=== PATIENT | male | born 1940 | race Caucasian/White ===

== ENCOUNTER 2017-08-02 21:24 | Observation (INO) | payer MEDICARE ==
[2017-08-03] MEDS ORDERED: PANTOPRAZOLE 40 MG/10 ML VIAL ONE (00:30)
[2017-08-03] MEDS ORDERED: SODIUM CHLORIDE 0.9% 1,000 ML BAG ONE (00:30)
[2017-08-03] MEDS ORDERED: ONDANSETRON 4 MG/2 ML VIAL IVP PRN (05:37)
[2017-08-03] MEDS ORDERED: ACETAMINOPHEN TAB 325 MG TAB PO PRN (05:37)
[2017-08-03] MEDS ORDERED: traMADol 50 MG TAB PO PRN (05:38)
[2017-08-03] MEDS: SODIUM CHLORIDE 0.9% 1,000 ML IV SCH (07:00)
[2017-08-03 07:16] LABS: Basophils % (A) 0 %; Eosinophils # (A) 0.2 k/uL (0-0.7); Eosinophils % (A) 2 %; HCT 39.7 % (39.0-53.0); HGB 12.5 gm/dL (13.0-17.5); Lymphocytes % (A) 24 %; MCHC 31.4 g/dL (31.0-37.0); MCV 79.6 fL (80.0-100.0); Mean Platelet Volume 9.4; Monocytes # (A) 0.6 k/uL (0-1.0); Monocytes % (A) 7 %; Neutrophils # (A) 5.6 k/uL (1.3-7.7); Neutrophils % (A) 66 %; Platelet Count 175 k/uL (150-450); RBC 4.99 m/uL (4.30-5.90); RDW 13.4 % (11.5-15.5); WBC 8.5 k/uL (3.8-10.6)
[2017-08-03 07:56] LABS: Calcium 9.1 mg/dL (8.4-10.2); Potassium 4.8 mmol/L (3.5-5.1)
--- NOTE | 2017-08-03 10:01 | P.CONS ---
History of Present Illness - Reason for Consult Consult date: 08/03/17 Dysphagia Requesting physician: Cheyenne Aguayo - History of Present Illness 77-year-old gentleman history of hiatal hernia transferred from [facility] with acute onset of dysphagia after eating spinach chicken and macaroni and cheese yesterday for dinner. Patient stated after several bites of his meal he developed increased dysphagia in the posterior throat region associated with some upper chest discomfort. No emesis. No fever or chills. Denies weight loss, hematemesis hematochezia melena. No history of this type of dysphagia. No history of esophageal stricture disease. In the interim he has been offered clear liquids and is swallowing without difficulty. Last EGD colonoscopy evaluation several years ago; hiatal hernia possible gastric polyp possible diverticulosis was mentioned. Additionally patient has been reporting some changes in bowel habits more constipation over the last few months as well as some lower abdominal discomfort. He spoke with his PCP about these symptoms with discussion of outpatient colonoscopy possible CT imaging. White count 8.5. Hemoglobin 12.5. MCV 79.6. BUN 24. Creatinine 1.5. Review of Systems Constitutional: Denies fever, chills, sweats, weight gain, or loss. HEENT: Negative for migraines, blurred vision or loss, earaches, drainage, tinnitus, oral mucosal lesions, dysphagia, or odynophagia. Cardiac: Negative for chest pain, arrhythmias, or palpitation. Respiratory: Negative for shortness of breath, hemoptysis, cough, or sputum production. Gastrointestinal: See HPI for pertinent findings. Genitourinary: Negative for hematuria, urgency, frequency, polyuria, dysuria, or penile discharge. Musculoskeletal: Negative for muscle aches, swelling, arthritis, and arthralgias. Neurologic: Negative for stroke or TIA. Endocrine: Negative for thyroid problems. Skin: Negative for rash or itching. Psychiatric: Negative history for depression and anxiety Medications and Allergies Allergies Allergy/AdvReac Type Severity Reaction Status Date / Time milk Allergy CONGESTION Verified 08/03/17 10:33 Physical Exam Vitals: Intake and Output 08/02/17 08/03/17 08/03/17 22:59 06:59 14:59 Other: Weight 83.007 kg General appearance: The patient is alert, oriented, in no acute distress. HET: Head is normocephalic and atraumatic. Pupils are equal and reactive. Oropharynx is clear without lesions. Neck: Supple without lymphadenopathy. Trachea midline. Heart: S1 S2. Regular rate and rhythm. Lungs: No crackles or wheezes are heard. Abdomen: Soft, nontender, nondistended with bowel sounds. No peritoneal signs. No palpable organomegaly or masses. Extremities: Normal skin color and turgor. No cyanosis, rash, ulceration, clubbing, or edema. Radial and pedal pulses are 2/4 bilaterally. Neurological: No focal deficits. Strength and sensation are grossly intact. Results CBC & Chem 7: 08/03/17 06:39 08/03/17 06:39 Labs: Abnormal Lab Results - Last 24 Hours (Table) 08/03/17 Range/Units 06:39 Hgb 12.5 L (13.0-17.5) gm/dL MCV 79.6 L (80.0-100.0) fL Assessment and Plan (1) Dysphagia Narrative/Plan: 77-year-old male presents with acute dysphagia as well as change in bowel habits with more constipation and lower abdominal discomfort over the last few months with evidence of microcytic anemia without overt GI bleeding. Possible food dysphagia possible Zenker's diverticulum possible stricture disease. Current Visit: Yes Status: Acute Code(s): R13.10 - DYSPHAGIA, UNSPECIFIED SNOMED Code(s): 25138462 (2) Change in bowel habits Current Visit: Yes Status: Acute Code(s): R19.4 - CHANGE IN BOWEL HABIT SNOMED Code(s): 495121716 (3) Microcytic anemia Current Visit: Yes Status: Acute Code(s): D50.9 - IRON DEFICIENCY ANEMIA, UNSPECIFIED SNOMED Code(s): 808433802 Plan: 1. EGD colonoscopy discussed and scheduled tomorrow for evaluation of microcytic anemia, change in bowel habits and dysphagia. 2. Clear liquid diet. Nothing by mouth after midnight. 3. Iron indices. The manager managing has discussed the risks, benefits and alternative therapies for the above-mentioned procedure and for both sedation/analgesia as well as necessary blood product administration, if indicated, as they pertain to this patient. The patient has indicated understanding and acceptance of the risks and procedures discussed. Thank you for this kind referral and the opportunity to participate in the care of your patient. This consultation was discussed with Dr. Juarez. The impression and plan of care have been directed as dictated.
[2017-08-03] MEDS ORDERED: PEG 3350-NA SULF,BICARB,CL/KCL 4,000 ML BOTTLE PO ONE (16:00)
[2017-08-03] MEDS ORDERED: BACLOFEN 10 MG TAB PO PRN (19:07)
[2017-08-03] MEDS ORDERED: LORATADINE-PSEUDOEPH 5-120 MG 1 EACH TAB.ER.12H PO PRN (19:07)
[2017-08-03] MEDS: SODIUM BICARBONATE TAB 650 MG TAB PO SCH (19:48)
[2017-08-03] MEDS ORDERED: CYANOCOBALAMIN 500 MCG TAB PO SCH (20:00)
--- NOTE | 2017-08-03 20:00 | HP ---
HISTORY AND PHYSICAL DATE OF SERVICE: 08/03/2017 CHIEF COMPLAINT: Dysphagia. HISTORY OF PRESENT ILLNESS: This 77-year-old gentleman with a past medical history of hypertension being followed by primary physician, Dr. Corona was apparently eating food yesterday. The patient had difficulty in swallowing and chest pain in the anterior part of the chest. Patient taken to [facility] and admitted for further evaluation and treatment. Patient had dysphagia previously. Patient also had EGD and colonoscopy previously and also had apparent polyps in the upper endoscopy. The results are pending at this time. Currently the patient is eating a combination of chicken, spinach and macaroni. Currently the patient is apparently able to swallow liquids according to him. Gastroenterology evaluated the patient and recommended possible upper and lower endoscopies. There is no history of fever, rigors. No history of headache, loss of consciousness, seizures. PAST MEDICAL HISTORY: Hypertension, history of previous dysphagia. MEDICATIONS: Reviewed and include: 1. Baclofen 10 mg p.o. t.i.d. p.r.n. 2. Vitamin B12 5000 mcg p.o. q 7 days. 3. Co-Enzyme-Q 100 mg p.o. daily. 4. Sodium bicarb 650 mg p.o. b.i.d. 5. Magonate mg 1000 mg p.o. daily. 6. Zestril 5 mg p.o. q.h.s. 7. Probiotic 2 capsules p.o. daily. 8. Fish oil 3 capsules p.o. daily. 9. Benita-D 24 1 p.o. daily p.r.n. 10.Tagamet 200 mg p.o. daily. 11.Vitamin D3 5000 daily. 12.Ecotrin 81 mg p.o. daily. ALLERGIES: MILK. FAMILY HISTORY: No history of heart disease or strokes in the family. SOCIAL HISTORY: No history of current smoking or alcohol intake. REVIEW OF SYSTEMS: ENT: No diminished vision. No diminished hearing. CARDIOVASCULAR: No angina or palpitations. Otherwise as mentioned earlier. Respirations: No cough or hemoptysis. GI: As mentioned earlier. : No dysuria or hematuria. Nervous system: No numbness, weakness. Allergy/Immunology: No asthma or hayfever. Musculoskeletal: As mentioned earlier. HEMATOLOGY/ONCOLOGY: No history of anemia. Endocrine: No history of diabetes or hypothyroidism. CONSTITUTIONAL: As mentioned earlier. Dermatology: Negative. Hematology: Negative. Psychiatric: As mentioned earlier. PHYSICAL EXAMINATION: The patient is alert, oriented times three. Pulse is 68. Blood pressure 126/83, respiration 18, temperature 97.4, pulse ox 99% on room air. HEENT: Conjunctivae normal. NECK: No jugular venous distention. Cardiovascular: S1, S2 muffled. Respiratory: Breath sounds diminished in the bases. No rhonchi. No crackles. Abdomen soft. Nontender. No mass palpable. Legs no edema, no swelling. NERVOUS SYSTEM: Higher functions as mentioned earlier, moves all 4 limbs, no focal motor deficits. Lymphatics: No lymph nodes palpable in the neck, axillae or groin. Skin no ulcer, rash or bleeding. LABS: WBC 8.2, hemoglobin 12.5, creatinine is 1.57. ASSESSMENT: 1. Dysphagia for evaluation. 2. Increased creatinine with chronic kidney disease stage 3. 3. History of hypertension. RECOMMENDATION AND DISCUSSION: Recommend to continue current medications, management and symptomatic treatment, otherwise EGD and colonoscopy by Gastroenterology tomorrow. Otherwise, resume the home medications. Guarded prognosis because of multiple complex medical issues. Further recommendations to follow. We will hold the aspirin for now. MMODL / IJN: [id number] /
[2017-08-03] MEDS ORDERED: LISINOPRIL 5 MG TAB PO SCH (21:00)
[2017-08-03] MEDS ORDERED: LACTATED RINGERS 1,000 ML IV SCH (22:45)
[2017-08-04 01:18] LABS: Iron Saturation 17.49 (15.00-50.00)
[2017-08-04] MEDS: SODIUM CHLORIDE 0.9% 1,000 ML IV SCH ×2 (07:07→10:50)
[2017-08-04 07:49] VITALS: RESP 16
[2017-08-04 08:56] LABS: Basophils % (A) 0 %; Eosinophils # (A) 0.3 k/uL (0-0.7); Eosinophils % (A) 4 %; HCT 41.4 % (39.0-53.0); HGB 13.2 gm/dL (13.0-17.5); Lymphocytes # (A) 1.6 k/uL (1.0-4.8); Lymphocytes % (A) 22 %; MCH 25.6 pg (25.0-35.0); Mean Platelet Volume 9.2; Monocytes # (A) 0.6 k/uL (0-1.0); Monocytes % (A) 8 %; Neutrophils # (A) 4.6 k/uL (1.3-7.7); Neutrophils % (A) 65 %; Platelet Count 172 k/uL (150-450); RBC 5.17 m/uL (4.30-5.90); RDW 13.5 % (11.5-15.5); WBC 7.1 k/uL (3.8-10.6)
[2017-08-04] MEDS: SODIUM BICARBONATE TAB 650 MG TAB PO SCH (08:57)
[2017-08-04] MEDS ORDERED: FAMOTIDINE 20 MG TAB PO SCH (09:00)
[2017-08-04] MEDS ORDERED: NON-FORMULARY DRUG (Ubidecarenone [Co Q-10] 100 MG) PO SCH (09:00)
[2017-08-04] MEDS ORDERED: DHA PO SCH (09:00)
[2017-08-04] MEDS ORDERED: PANTOPRAZOLE 40 MG/10 ML VIAL IVP SCH (09:00)
[2017-08-04] MEDS ORDERED: FISH OIL PO SCH (09:00)
[2017-08-04] MEDS ORDERED: EPA PO SCH (09:00)
[2017-08-04 09:07] LABS: Albumin 3.6 g/dL (3.5-5.0); Calcium 9.2 mg/dL (8.4-10.2); Potassium 4.5 mmol/L (3.5-5.1); Total Bilirubin 1.4 mg/dL (0.2-1.3); Total Protein 5.7 g/dL (6.3-8.2)
[2017-08-04] MEDS ORDERED: CHOLECALCIFEROL 1,000 UNIT TAB PO SCH (12:00)
[2017-08-04] MEDS ORDERED: LACTOBACILLUS ACIDOPH & BULGAR 1 EACH PACKET PO SCH (12:00)
[2017-08-04] MEDS ORDERED: MAGNESIUM OXIDE 400 MG TAB PO SCH (12:00)
[2017-08-04 13:05] VITALS: TEMP 97.8
[2017-08-04] MEDS ORDERED: LIDOCAINE 1% INJ 10MG/ML (20 ML MDV) ONE (15:12)
[2017-08-04] MEDS ORDERED: PROPOFOL 10 MG/ML 20 ML VIAL IV ONE (15:12)
[2017-08-04] MEDS ORDERED: IV FLUID CONTINUATION 1,000 ML IV ONE (15:18)
--- NOTE | 2017-08-04 16:02 | P.PCN ---
Date of Procedure: 08/04/17 Procedure(s) Performed: Procedure: 1. Esophagogastroduodenoscopy and biopsy. 2. Total colonoscopy. Preoperative diagnosis: History of dysphagia and history of polyps. Postoperative diagnosis: 1. Small sliding hiatal hernia with distal esophagitis consistent with reflux. 2. Mild gastritis. 3. Colon exam reveals diverticulosis with no evidence of acute diverticulitis, strictures, polyps or cancer. Preparation: GoLYTELY prep. Sedation: Was provided by anesthesia. Brief clinical history: The patient is a 77-year-old male with history of hiatal hernia transferred from [facility] with acute onset of dysphagia after eating spinach chicken and macaroni and cheese for dinner 2017. Patient stated after several bites of his meal he developed increased dysphagia in the posterior throat region associated with some upper chest discomfort. No emesis. No fever or chills. Denies weight loss, hematemesis hematochezia melena. No history of this type of dysphagia. No history of esophageal stricture disease. In the interim he has been offered clear liquids and is swallowing without difficulty. Last EGD colonoscopy evaluation several years ago; hiatal hernia possible gastric polyp possible diverticulosis was mentioned. Additionally, patient has been reporting some changes in bowel habits more constipation over the last few months as well as some lower abdominal discomfort. He spoke with his PCP about these symptoms with discussion of outpatient colonoscopy possible CT imaging. Patient has history of polyps. White count 8.5. Hemoglobin 12.5. MCV 79.6. BUN 24. Creatinine 1.5. The details are summarized in the history and physical and dictated consultations and progress notes. Procedure: With the patient on his left lateral decubitus position and after informed consent and adequate sedation, I passed a Olympus-GIF 160 video upper endoscope through the cricopharyngeus down the esophagus. There was a small sliding hiatal hernia with multiple short ulcerations close to the GE junction consistent with reflux esophagitis but there was no strictures or Atkinson's esophagus. Elsewhere in the esophagus, the mucosa showed hyperemia and submucosal hemorrhages possibly the consequence of the food impaction that he had. The endoscope was then advanced into the stomach which was insufflated with air and inspected in detail including the retroflex view in the cardia. There was some mottling and erythema in the antrum but no ulcers or erosions. Pyloric channel, duodenal bulb, post bulbar area and descending duodenum appeared within normal limits. I obtained biopsies from the antrum then the endoscope was withdrawn and I proceeded with the colonoscopy. Perianal area did not show any fissures or fistulas. There were no masses felt on digital rectal examination. The Olympus CFQ 160L video colonoscope was then inserted in the rectum and the usual fashion and advanced to the cecum. There were a few diverticular orifices noted on the left side and occasional orifice on the right side with no evidence of acute diverticulitis or strictures no polyps or tumors were seen or any other pathology. I retroflexed the endoscope in the rectum before the endoscope was withdrawn. The patient tolerated the procedure well. Plan: The patient was reassured and I discussed with his . We will intensify the medical treatment of his reflux and esophagitis. If he remains symptomatic after that I would consider a repeat upper endoscopy to assess the healing of his esophagitis and consider dilation. I did not recommend repeat colonoscopy and this can be kept as a contingency based on his overall health in the future.
[2017-08-04 16:07] VITALS: BP 150/96; PULSE 80
--- NOTE | 2017-08-04 21:43 | DS ---
DISCHARGE SUMMARY DATE OF SERVICE: 08/04/2017. FINAL DIAGNOSES: 1. Dysphagia, possibly small sliding hiatal hernia with distal esophagitis with reflux. 2. Acute gastritis on EGD. 3. Increased creatinine with chronic kidney stage 3. 4. History hypertension. DISCHARGE DISPOSITION: The patient being discharged in stable condition with guarded prognosis. HISTORY OF PRESENT ILLNESS: This 77-year-old gentleman admitted with multiple medical issues including dysphagia. The patient underwent EGD and colonoscopy. EGD showed a small sliding hiatal hernia with distal esophagitis consistent with reflux, mild gastritis and colon exam revealed diverticulosis with no evidence of diverticulitis. The patient was treated symptomatically. Patient improved significantly. PHYSICAL EXAMINATION: On exam, vital signs are stable. Cardiovascular: S1, S2 muffled. Abdomen soft, nontender. Nervous system: No focal deficits. Creatinine is 1.29. Patient being discharged in stable condition with guarded prognosis. DISCHARGE ADVICE AND MEDICATIONS: Diet is cardiac. Activity limited until followup. Follow up with primary care physician in 2-3 days. Follow up with Dr. Corona and Dr. Juarez as advised. MEDICATIONS ARE: 1. Tylenol 650 q.4h p.r.n. 2. Ecotrin 81 mg p.o. daily. 3. Lioresal 10 mg p.o. t.i.d. p.r.n. 4. Vitamin D3 5000 daily. 5. Tagamet 200 mg p.o. daily. 6. Fexofenadine pseudoephedrine 1 tab p.o. daily. 7. Fish oil 3 capsules p.o. daily. 8. Probiotic 2 capsules p.o. daily. 9. Zestril 5 mg p.o. q.h.s. 10.Magnesium 2000 mg p.o. daily. 11.Sodium bicarb 650 p.o. b.i.d. 12.Coenzyme Q10 100 mg p.o. daily. 13.Vitamin B12 500 mcg p.o. daily. MMODL / IJN: [id number] /
== END 2017-08-04 20:49 | disposition home or self-care (01) ==
LOC: 3OBS 22:46
PROVIDERS: ADMIT Hospitalist; ATTEND Hospitalist
DX: R13.10 Dysphagia, unspecified (principal); K29.00 Acute gastritis without bleeding; K29.50 Unspecified chronic gastritis without bleeding; K20.9 Esophagitis, unspecified; K44.9 Diaphragmatic hernia without obstruction or gangrene; D50.9 Iron deficiency anemia, unspecified; I12.9 Hypertensive chronic kidney disease with stage 1 through stage 4 chronic kidney disease, or unspecified chronic kidney disease; N18.3 Chronic kidney disease, stage 3 (moderate); K57.90 Diverticulosis of intestine, part unspecified, without perforation or abscess without bleeding; Z91.011 Allergy to milk products; Z86.010 Personal history of colon polyps; Z79.82 Long term (current) use of aspirin; Z79.899 Other long term (current) drug therapy
CPT/HCPCS: 88305; 80053; 80048; 82728; 83540; 83550; 85025 ×2; 43239; G0378 ×3; G0379; J2001; J2704; C9113 ×2; G0121

== ENCOUNTER → 2020-07-30 | Outpatient (CLI) | payer MEDICARE ==
--- NOTE | 2020-07-30 14:27 | CT ---
EXAMINATION TYPE: CT abdomen pelvis wo con DATE OF EXAM: 07/30/2020 HISTORY: Lt flank pain, history of stones CT DLP: 890 mGycm. Automated Exposure Control for Dose Reduction was Utilized. TECHNIQUE: CT scan of the abdomen and pelvis is performed without oral or IV contrast. COMPARISON: CT March 02, 2016 FINDINGS: Within the limitations of a non-contrast study, the following observations are made. LUNG BASES: There are 2 sub-5 mm posterior nodules left lower lobe axial images 13 and 17 unchanged f rom 2016. LIVER/GB: Cholecystectomy clips are redemonstrated. PANCREAS: No significant abnormality is seen. SPLEEN: Scattered calcifications throughout the spleen. Findings consistent with product of old granu lomatous disease. ADRENALS: No significant abnormality is seen. KIDNEYS: Central cystic change of both kidneys favored parapelvic cysts. No renal stones or hydrouret er seen bilaterally BOWEL: Small sliding-type hiatal hernia containing fat and tiny mesenteric vessels. No suspicious sma ll or large bowel dilatation. Some diverticula in the left and in a greater degree in the sigmoid col on. No CT evidence for acute diverticulitis. Normal-appearing appendix right upper pelvis coronal mona ge 44. GENITAL ORGANS: Enlarged prostate consistent with BPH. LYMPH NODES: No greater than 1cm abdominal or pelvic lymph nodes are appreciated. OSSEOUS STRUCTURES: Slight scoliotic curvature. Stable grade 1 retrolisthesis L2 on L3 and to lesser degree L3 on L4. Moderate to severe disc space narrowing L2-L3 level with endplate sclerosis is redem onstrated. Mild to moderate disc space narrowing and vacuum disc phenomenon L3-L4 and L5-S1 levels is redemonstrated. OTHER: Stable small fat-containing right inguinal hernia. IMPRESSION: No renal stones or hydronephrosis is seen bilaterally. No acute findings are evident.
== END | disposition home or self-care (01) ==
LOC: RADCTMAIN 13:19
PROVIDERS: ATTEND Urology
DX: N20.0 Calculus of kidney (principal)
CPT/HCPCS: 74176

== ENCOUNTER → 2023-09-07 | Outpatient (CLI) | payer MEDICARE ==
--- NOTE | 2023-09-08 14:15 | CT ---
EXAMINATION TYPE: CT abdomen pelvis wo con DATE OF EXAM: 09/07/2023 COMPARISON: 07/30/2020 HISTORY: flank pain x [address] DLP: 571.9 mGycm Automated exposure control for dose reduction was used. TECHNIQUE: Helical acquisition of images was performed from the lung bases through the pelvis. FINDINGS: The lungs are clear. There is a large hernia There is surgical absence of the gallbladder.. There is no biliary ductal dilatation. There is no organomegaly of the liver, pancreas, spleen or adrenal glands. There are no renal calcifications or hydronephrosis. There is no change in the parapelvic cysts. The caliber of the abdominal aorta is normal and there is no retroperitoneal adenopathy or hemorrhage . The bowel loops are normal in caliber is no evidence of obstruction. No inflammatory changes are iden tified in the mesentery and there is no free intraperitoneal air or fluid. There is no pelvic mass, free fluid, abscess or adenopathy. There is mild diverticulosis of the colon without CT evidence of diverticulitis. There is moderate prostatic hypertrophy. The osseous structures and soft tissues are unremarkable. IMPRESSION: 1. Large ventral hernia. 2. Probable marked parapelvic cysts in the kidneys bilaterally. There is no renal calcification or de finite hydronephrosis. 3. Moderate prostatic hypertrophy. 4. No interval change compared to previous
== END | disposition home or self-care (01) ==
LOC: RADCTMAIN 14:49
PROVIDERS: ATTEND Urology
DX: K43.9 Ventral hernia without obstruction or gangrene (principal); N40.0 Benign prostatic hyperplasia without lower urinary tract symptoms; N13.30 Unspecified hydronephrosis
CPT/HCPCS: 74176